=== PATIENT | female | born 1960 | race Caucasian/White ===

== ENCOUNTER → 2021-11-19 | Outpatient (CLI) | payer BC ==
[~2021-11-19] MED LIST: ALPR.5 PO; AMOX1XR PO; CIPR500; CONEST1.25; CYCL10 PO; DOC250 PO; ELMIRON PO; ESCI20; ESOM20; ESTNORT PO; FENT75TP; GABA300 PO; HYDACE5 PO; HYDACE5325; HYDACE7.5; LEVFLO500 PO; LORA2 PO; NITR100CA; NORT50; NYST100P TOP; ONDA4ODT MM; OXYACE5T PO; OXYACE7.5T PO; OXYC15ER PO; OXYC20ER PO; OXYC40ER PO; OXYC5 PO; PENVK500 PO; RXHYDACE PO; RXONDA4ODT MM; RXOXYACE PO; SERT50; SULTRIDS PO; TIZA4; TRAZ50; VENL75ER; [UNRECOGNIZED DRUG - OTHER]
[2021-11-20 11:55] LABS: Stool Occult Bld Immuno 1 Negative (NEGATIVE)
== END | disposition home or self-care (01) ==
LOC: LAB 07:45 → LAB SHORT 07:45
PROVIDERS: Physician Assistant
DX: Z12.12 Encounter for screening for malignant neoplasm of rectum (principal); Z12.11 Encounter for screening for malignant neoplasm of colon
CPT/HCPCS: G0328

== ENCOUNTER → 2022-10-13 | Outpatient (CLI) | payer BC | END | disposition home or self-care (01) | LOC: LAB SHORT 16:30 → LAB 16:30 | DX: R30.0 Dysuria (principal) | CPT/HCPCS: 87086 ==